=== PATIENT | male | born 1995 | race African-American/Black ===

== ENCOUNTER 2018-12-16 11:41 | Emergency (ER) | payer OTHER ==
[~2018-12-16] VITALS: Ht 188 cm; Wt 122.5 kg
== END 2018-12-16 16:23 | disposition home or self-care (01) ==
LOC: ER 11:41
DX: B34.9 Viral infection, unspecified (principal); R11.11 Vomiting without nausea

== ENCOUNTER 2019-11-28 00:33 | Emergency (ER) | payer OTHER ==
[~2019-11-28] VITALS: Ht 188 cm; Wt 124.7 kg
[2019-11-28] MEDS ORDERED: GILPHEX TR TAB1 EACH PO (06:48)
[2019-11-28] MEDS ORDERED: ZITHROMAX500 MG PO (06:48)
== END 2019-11-28 07:11 ==
LOC: ER 00:33
DX: R50.9 Fever, unspecified (principal); B96.0 Mycoplasma pneumoniae [M. pneumoniae] as the cause of diseases classified elsewhere

== ENCOUNTER 2020-12-23 01:48 | Emergency (ER) | payer OTHER ==
[~2020-12-23] VITALS: Ht 190.5 cm; Wt 131.5 kg
[~2020-12-23 01:48] MED LIST: GILPHEX TR TAB1 EACH PO; ZITHROMAX500 MG PO
[2020-12-23] MEDS ORDERED: DUI500 PO (03:07)
== END 2020-12-23 03:12 ==
LOC: ER 01:48
DX: S61.211A Laceration without foreign body of left index finger without damage to nail, initial encounter (principal); W26.0XXA Contact with knife, initial encounter; Y93.89 Activity, other specified; Y92.090 Kitchen in other non-institutional residence as the place of occurrence of the external cause

== ENCOUNTER 2021-10-17 14:10 | Outpatient (CLI) | payer OTHER ==
[~2021-10-17 14:10] MED LIST changes: +DUI500 PO
== END 2021-10-17 14:30 | disposition home or self-care (01) ==
LOC: PPH VACUNA 14:10
PROVIDERS: ATTEND Emergency Medicine Pediatric Emergency Medicine
DX: Z23 Encounter for immunization (principal)